=== PATIENT | male | born 1980 | race Caucasian/White ===

== ENCOUNTER 2018-08-17 09:53 | Emergency (ER) | payer OTHER ==
[2018-08-17] MEDS ORDERED: Acetaminophen 500 MG TAB ONE (10:51)
[2018-08-17] MEDS ORDERED: Lidocaine 1% (PF) 30 ML VIAL ONE (11:07)
--- NOTE | 2018-08-17 11:13 | CT ---
CT BRAIN WITHOUT CONTRAST: HISTORY: Head injury, Headache. FINDINGS: Comparison is made with the exam of 01/23/2012. No evidence of acute infarct, hemorrhage, midline shift, or abnormal extraaxial fluid collections are seen. The ventricular size is normal and the basilar cisterns patent. The bony calvarium is intact . The visualized paranasal sinuses and mastoid air cells are well aerated. IMPRESSION: No CT evidence of acute intracranial process. POS: [facility]
--- NOTE | 2018-08-17 11:24 | CT ---
CT CERVICAL SPINE WITH CORONAL AND SAGITTAL REFORMATIONS: History: Trauma. Neck pain. FINDINGS/IMPRESSION: Comparison is made with exam of 01-23-12. Cervical lordosis is maintained. No acute fracture or subluxation is seen. No facet malalignment is n oted. There are anterior osteophytes at C3-4-5-6 levels. The prominent cervical lymph nodes noted on the previous exam are again seen. POS: [facility]
[2018-08-17] MEDS ORDERED: Bacitracin Zinc 1 Packet ONE (11:48)
== END 2018-08-17 11:50 | disposition home or self-care (01) ==
LOC: ERS 09:53
DX: S01.01XA Laceration without foreign body of scalp, initial encounter (principal); F17.210 Nicotine dependence, cigarettes, uncomplicated; W20.8XXA Other cause of strike by thrown, projected or falling object, initial encounter
CPT/HCPCS: 12001; 70450; 72125; J2001